=== PATIENT | male | born 1970 | race Caucasian/White ===

== ENCOUNTER 2018-06-02 07:10 | Day surgery (SDC) | payer BC ==
[~2018-06-02 07:10] MED LIST: Acetaminophen TAB* 325 MG PO ONE; Buffered Lidocaine 1% SYRIN* 1 ML/SYRINGE INTRADERM ONE; Dexamethasone TAB* 4 MG PO ONE; DiMENhydriNATE IV* 50 MG/ML VIAL IV PUSH PRN; Famotidine IV* 10 MG/ML 2 ML (20 mg) IV ONE; Gabapentin CAP(*) 300 MG PO ONE; HYDROcodone/ACETAMIN 5-325 MG* 1 TAB PO PRN; Lactated Ringers 1000 ML Bag* 1,000 ML IV SCH; Midazolam* 1 MG/ML 2 ML VIAL (2 MG) ONE; Morphine 4 MG/ML VIAL (1 ml) 4 MG/ML VIAL IV PRN; Naloxone* 0.4 MG/ML 1 ML VIAL IV PRN; Ondansetron INJ* 2 MG/ML VIAL IV PRN; Ondansetron INJ* 2 MG/ML VIAL ONE; PROCHLORPERAZINE INJ 5 MG/ML 2 ML VIAL IV PRN; diPHENhydraMINE IV* 50 MG/ML 1 ml VIAL (BENADRYL) IV PRN; fentaNYL* 50 MCG/ML 2 ML VIAL (100 MCG VIAL) IV PRN; fentaNYL* 50 MCG/ML 2 ML VIAL (100 MCG VIAL) ONE; oxyCODONE/Acetamin 5/325 MG* TAB PO PRN
[2018-06-02] MEDS ORDERED: Dexamethasone TAB* 4 MG ONE (07:21)
[2018-06-02] MEDS ORDERED: ceFAZolin 2 GM in NS PREMIX(*) 2 GM/100 ML BAG IVPB ONE (07:21)
[2018-06-02] MEDS ORDERED: Ondansetron ODT TAB* 4 MG ONE (07:21)
[2018-06-02] MEDS ORDERED: Famotidine IV* 10 MG/ML 2 ML (20 mg) ONE (07:21)
--- NOTE | 2018-06-02 07:46 | HP ---
HISTORY AND PHYSICAL: DATE OF ADMISSION: 06/02/18 - [facility] HISTORY OF PRESENT ILLNESS: Andrey is a 47-year-old gentleman who is in otherwise good health, but has some hallux rigidus of his right first MTP joint. He has had persistent pain despite inserts and stiff-soled shoes and at this point is scheduled for surgery. His surgery will consist of right first MTP joint cheilectomy and possible Cartiva implant. He understands the expected longevity of the implant and the satisfactory, but not total, pain relief following this type of surgery. We have discussed fusion as well in the past. PAST MEDICAL HISTORY: Andrey is a healthy 47-year-old. There is some anxiety in the past, but no significant medical history. MEDICATIONS: He is not on any active medications. REVIEW OF SYSTEMS: He has no symptoms of fevers, chills, or night sweats. He has had no known anesthetic problems. He has not had any recent chest pain, shortness of breath, or significant headaches. No GI issues of diarrhea, nausea , or vomiting. There is no history of nocturia or urinary frequency issues. No paresthesias, numbness, seizure, stroke, or epilepsy history. No history of diabetes. PHYSICAL EXAMINATION GENERAL: Andrey is a healthy-appearing male, alert and oriented, appropriate mood and affect. HEENT: He has a clear oropharynx. NECK: Supple. CHEST EXAM: Clear to auscultation in all lung edouard. CARDIAC EXAM: Shows a regular rate and rhythm. No extra sounds noted. ABDOMEN: Flat, nontender, soft. EXTREMITIES: The examination of the right foot shows him to have 5/5 range of motion, full strength, and intact sensation. There is some dorsal bossing at the first MTP joint with some pain with passive extension and direct pressure over the capsule. Alignment is neutral. PLAN AND IMPRESSION: The patient with hallux rigidus, right first metatarsophalangeal joint. Plan is for decompression, cheilectomy, and possible Cartiva implant. [id number]/[facility] #: [id number] [facility]
[2018-06-02] MEDS ORDERED: Midazolam* 1 MG/ML 5 ML VIAL (5 MG) ONE (08:19)
[2018-06-02] MEDS ORDERED: KETAMINE HCL* 50 MG/ML 10 ML VIAL ONE (08:19)
[2018-06-02] MEDS ORDERED: fentaNYL* 50 MCG/ML 2 ML VIAL (100 MCG VIAL) ONE (08:19)
[2018-06-02] MEDS ORDERED: Bupivacaine 0.5%* 50 ML VIAL ONE (08:51)
[2018-06-02] MEDS ORDERED: Lidocaine 2% PF* 10 ML AMP ONE (08:51)
[2018-06-02] MEDS ORDERED: Propofol* 10 MG/ML 20 ML BTL ONE (09:40)
[2018-06-02] MEDS ORDERED: Lidocaine 2% PF * 5 ML VIAL ONE (09:40)
[2018-06-02] MEDS ORDERED: Ketorolac INJ* 30 MG/ML 1 ML VIAL ONE (09:40)
[2018-06-02 12:59] VITALS: BP 122/78
--- NOTE | 2018-06-02 13:36 | OP ---
DATE OF OPERATION: 06/02/18 - [facility] DATE OF : 70 ATTENDING SURGEON: Lucas Esparza MD. ASSISTED BY: Hayde Whitlock PA-C. PRE-OP DIAGNOSIS: Right stage 3 hallux rigidus. POST-OP DIAGNOSIS: Right stage 3 hallux rigidus. OPERATIVE PROCEDURE: Cheilectomy, right first metatarsophalangeal joint and 10 mm Cartiva implant. DESCRIPTION OF PROCEDURE: The patient was taken to the operating room where a longitudinal incision was made over the first MTP joint. We excised medial and lateral reflecting the capsule to allow visualization of the joint. Large amount of loose bone spurs were removed over the dorsum of the proximal phalanx and fixed bone spurs over the metatarsal head, those with a microsagittal saw. The patient had eburnated bone over the dorsal two-thirds of the joint space. This was prepared from the Cartiva implant by placing a guide pin into the center of the metatarsal head and incising this to a 10 mm diameter. We drilled out the 10 mm base and then placed the 10 mm Cartiva with about 2 mm of proud projection of the implant itself. We then irrigated thoroughly closing the capsule with 3-0 Monocryl, subcu with 3-0 Monocryl, and nylon for the skin, and a compression dressing applied. [id number]/[facility] #: [id number] [facility]
== END 2018-06-02 12:55 | disposition home or self-care (01) ==
LOC: OR 07:10
PROVIDERS: ATTEND Orthopaedic Surgery
DX: M20.21 Hallux rigidus, right foot (principal)
CPT/HCPCS: A9270-GY; C1776; J0690; J1885; J2001; J2250; J2704; J3010; J8540